=== PATIENT | female | born 1960 | race Caucasian/White ===

== ENCOUNTER → 2021-02-16 | Day surgery (SDC) | payer MEDICARE, OTHER ==
[~2021-02-16] MED LIST: B12 ACTIVE1000 MCG PO; CINNAMON500 MG PO; CLARITIN 10MG T10 MG PO; CO Q-1010 MG PO; D3 + K2 DOTS 11 EACH PO; DOCUSATE SODIU100 MG PO; FLOMAX0.4 MG PO; GLUCOPHAGE500 MG PO; IBUPROFEN200 M1 PO; LIPITOR40 MG PO; NAPROXEN250 MG PO; NEURONTIN400 MG PO; PEPCID20 MG PO; ROXICODONE TAB 55 MG PO; TYLENOL EXTRA500 MG PO; VISTARIL25 MG PO; VITAMIN E100 UNI1 PO
[2021-02-16 08:12] LABS: HEMOGLOBIN 14.2 gm/dl (12.3-15.3); RED BLOOD COUNT 4.31 M/UL (4.00-5.10); WHITE BLOOD COUNT 6.2 K/UL (4.5-11.0)
== END | disposition home or self-care (01) ==
LOC: OR 07:15
PROVIDERS: Obstetrics & Gynecology
DX: A63.0 Anogenital (venereal) warts (principal); N87.0 Mild cervical dysplasia; N89.0 Mild vaginal dysplasia; K76.0 Fatty (change of) liver, not elsewhere classified; F41.8 Other specified anxiety disorders; E78.5 Hyperlipidemia, unspecified; F17.210 Nicotine dependence, cigarettes, uncomplicated; K21.9 Gastro-esophageal reflux disease without esophagitis; E66.9 Obesity, unspecified; M19.90 Unspecified osteoarthritis, unspecified site; E11.40 Type 2 diabetes mellitus with diabetic neuropathy, unspecified; Z68.33 Body mass index [BMI] 33.0-33.9, adult; Z85.048 Personal history of other malignant neoplasm of rectum, rectosigmoid junction, and anus; Z85.828 Personal history of other malignant neoplasm of skin; Z87.410 Personal history of cervical dysplasia; Z87.442 Personal history of urinary calculi; Z88.5 Allergy status to narcotic agent; Z88.6 Allergy status to analgesic agent; Z88.8 Allergy status to other drugs, medicaments and biological substances
CPT/HCPCS: 36415; 71045; 82962; 85025; 93005; J1100; J2001; J2405; J2704; J3010; J7120

== ENCOUNTER → 2021-03-21 | Outpatient (CLI) | payer MEDICARE, OTHER | LOC: EXRD 02-06 09:00 | DX: K76.0 Fatty (change of) liver, not elsewhere classified (principal) | CPT/HCPCS: 76700 ==

== ENCOUNTER → 2021-12-07 | Outpatient (CLI) | payer MEDICARE, OTHER | LOC: EXRD 10:26 | DX: M79.604 Pain in right leg (principal); M79.605 Pain in left leg | CPT/HCPCS: 93925 ==

== ENCOUNTER → 2022-05-01 | Outpatient (CLI) | payer MEDICARE, OTHER ==
[~2022-05-01] MED LIST changes: +APPLE CIDER VI300 MG PO; +COLACE 100MG C100 MG PO; +HYDROCODON-ACE1 EAC4 PO; +IBUPROFEN800 MG PO; +PROBIOTIC PO; +STOOL SOFTENER100 M1 PO; +TOPICAINE 530 GM TP
[2022-05-01 11:14] LABS: HEMOGLOBIN 14.7 gm/dl (12.3-15.3); RED BLOOD COUNT 4.36 M/UL (4.00-5.10); WHITE BLOOD COUNT 6.1 K/UL (4.5-11.0)
[2022-05-01 11:49] LABS: BUN/CREATININE RATIO 22 (0-10)
== END ==
LOC: OPSV2 10:00
PROVIDERS: Obstetrics & Gynecology
DX: Z01.818 Encounter for other preprocedural examination (principal); A63.0 Anogenital (venereal) warts
CPT/HCPCS: 36415; 71046; 80053; 81001; 85025; 93005

== ENCOUNTER → 2022-05-07 | Day surgery (SDC) | payer MEDICARE, OTHER | END | disposition home or self-care (01) | LOC: OR 05:06 | DX: N87.0 Mild cervical dysplasia (principal); A63.0 Anogenital (venereal) warts; E78.5 Hyperlipidemia, unspecified; E11.9 Type 2 diabetes mellitus without complications; F17.210 Nicotine dependence, cigarettes, uncomplicated; K21.9 Gastro-esophageal reflux disease without esophagitis; Z88.6 Allergy status to analgesic agent; Z88.5 Allergy status to narcotic agent; Z79.84 Long term (current) use of oral hypoglycemic drugs; Z79.899 Other long term (current) drug therapy | CPT/HCPCS: 82962; J1100; J2001; J2405; J2704; J2795; J3010 ==

== ENCOUNTER → 2022-07-09 | Outpatient (CLI) | payer MEDICARE, OTHER | LOC: CT 11:28 | DX: C20 Malignant neoplasm of rectum (principal); Z98.890 Other specified postprocedural states | CPT/HCPCS: Q9967 ==